=== PATIENT | male | born 1945 | race Caucasian/White ===

== ENCOUNTER → 2018-12-29 | Outpatient (CLI) | payer MEDICARE, BC ==
[~2018-12-29] MED LIST: AMLO2.5T5 PO; CARV25TA2 PO; IOHEXOL 240 MG/ML 50ML VIAL. PO ONE; IOHEXOL 300 MG/ML 100ML VIAL. IV ONE
--- NOTE | 2018-12-29 16:04 | KCIC ---
EXAM: CT Abdomen and Pelvis with IV contrast CLINICAL HISTORY: Pelvic pain, abdominal distention, evaluate for diverticulitis. History of appendectomy, vasectomy, extramammary Paget's disease. COMPARISON: none TECHNIQUE: Helical CT of the abdomen and pelvis was performed following the administration of intravenous contrast. Axial, coronal and sagittal reformatted images were generated. PQRS compliance statement - One or more of the following individualized dose reduction techniques were utilized for this study: 1. Automated exposure control 2. Adjustment of the mA and/or kV according to patient size 3. Use of iterative reconstruction technique FINDINGS: Lower chest: Linear opacities in the left lower lobe likely scarring/atelectasis. Abdomen and Pelvis: Subcentimeter hypodense hepatic dome lesions are too small to accurately characterize. Spleen is unremarkable. Adrenal glands are normal. Mild prominence of the pancreatic duct without definite pancreatic mass lesion. No pancreatic atrophy. No biliary ductal dilatation. Gallbladder is normal. Symmetric nephrograms. No focal renal lesion. No hydronephrosis. Marked distention of the bladder. This can be correlated for possible voluntary or involuntary causes of urinary retention. Moderate to large volume colonic stool content is seen. No small or large bowel dilatation. Colonic diverticulosis without evidence for acute diverticulitis. No abdominal or pelvic lymphadenopathy. No abdominal or pelvic ascites. Bones: Multilevel degenerative changes of spine are seen. Multilevel Schmorl's nodes. IMPRESSION: 1. Moderate to large right colonic stool content is seen particularly in the right colon. 2. Colonic diverticulosis without evidence for acute diverticulitis. 3. No abdominal or pelvic lymphadenopathy. No abdominal or pelvic ascites. Electronically signed by: Juan José Henson MD (12/29/2018 4:01 PM) [facility]
== END | disposition home or self-care (01) ==
LOC: KCIC CT 10:59
PROVIDERS: ATTEND General Practice
DX: K57.30 Diverticulosis of large intestine without perforation or abscess without bleeding (principal); K76.89 Other specified diseases of liver; R91.1 Solitary pulmonary nodule; K56.41 Fecal impaction; M51.47 Schmorl's nodes, lumbosacral region; Z90.49 Acquired absence of other specified parts of digestive tract
CPT/HCPCS: 74177; 82565; Q9966; Q9967